=== PATIENT | male | born 1955 | race Caucasian/White ===

== ENCOUNTER 2021-07-05 18:02 | Emergency (ER) | payer MEDICARE ==
[~2021-07-05] VITALS: Ht 177.8 cm; Wt 96.2 kg
[2021-07-05 18:09] VITALS: BP 156/54
[2021-07-05] MEDS ORDERED: CEPH-585 PO (21:19)
[2021-07-05] MEDS ORDERED: cephalexin 250mg capsule PO ONE (21:20)
== END 2021-07-05 21:28 | disposition home or self-care (01) ==
LOC: ER 18:04
DX: L73.9 Follicular disorder, unspecified (principal); Z88.8 Allergy status to other drugs, medicaments and biological substances; Z79.2 Long term (current) use of antibiotics
CPT/HCPCS: 99283

== ENCOUNTER 2021-07-28 13:42 | Emergency (ER) | payer MEDICARE ==
[~2021-07-28] VITALS: Ht 177.8 cm; Wt 100.0 kg
[2021-07-28 13:58] VITALS: BP 175/113
[2021-07-28] MEDS ORDERED: LIDOcaine 2% 10ml TOPICAL JELLY (Urojet) MM ONE (17:30)
[2021-07-28 18:00] LABS: COLOR,URINE YELLOW (Yellow); GLUCOSE, URINE NEGATIVE (Neg); KETONES,URINE TRACE mg/dl (Neg); LEUKOCYTE ESTERASE ,URINE NEGATIVE (Neg); NITRITES, URINE NEGATIVE (Neg); OCCULT BLOOD,URINE LARGE (Neg); PH,URINE 5.5 (4.8-8.0); PROTEIN,URINE NEGATIVE (Neg)
[2021-07-28 18:04] LABS: CLARITY,URINE SLIGHTLY CLOUDY (Clear); UA COLLECTION TYPE FOLEY CATH
[2021-07-28 18:07] LABS: MUCUS STRANDS FEW /LPF (Neg); RBC,URINE 20-50 /HPF (0-2); SQUAMOUS EPITHELIAL CELL,UR NONE SEEN /LPF (FEW)
[2021-07-28 18:08] LABS: BACTERIA,URINE FEW /HPF (Neg); WBC,URINE NONE SEEN /HPF (0-4)
== END 2021-07-28 18:05 | disposition home or self-care (01) ==
LOC: ER 13:42
DX: R33.9 Retention of urine, unspecified (principal); N40.0 Benign prostatic hyperplasia without lower urinary tract symptoms; Z88.0 Allergy status to penicillin; Z96.0 Presence of urogenital implants
CPT/HCPCS: 81001; 99283

== ENCOUNTER 2022-02-14 06:41 | Emergency (ER) | payer MEDICARE ==
[~2022-02-14] VITALS: Ht 177.8 cm; Wt 95.5 kg
[2022-02-14] MEDS ORDERED: LIDOcaine 2% 10ml TOPICAL JELLY (Urojet) MM ONE (07:00)
[2022-02-14 07:58] LABS: CLARITY,URINE CLEAR (Clear); GLUCOSE, URINE NEGATIVE (Neg); KETONES,URINE NEGATIVE (Neg); LEUKOCYTE ESTERASE ,URINE NEGATIVE (Neg); NITRITES, URINE NEGATIVE (Neg); OCCULT BLOOD,URINE MODERATE (Neg); PROTEIN,URINE NEGATIVE (Neg); UROBILINOGEN,URINE 0.2 E.U/dL (0.2-1.0)
[2022-02-14 08:00] LABS: COLOR,URINE STRAW (Yellow); UA COLLECTION TYPE FOLEY CATH
[2022-02-14 08:01] LABS: BACTERIA,URINE NONE SEEN /HPF (Neg); MUCUS STRANDS NONE SEEN /LPF (Neg); RBC,URINE 20-50 /HPF (0-2); SQUAMOUS EPITHELIAL CELL,UR NONE SEEN /LPF (FEW); WBC,URINE 0-4 /HPF (0-4)
[2022-02-14 08:06] VITALS: BP 142/82
== END 2022-02-14 08:38 | disposition home or self-care (01) ==
LOC: ER 06:41
DX: R33.9 Retention of urine, unspecified (principal); R11.0 Nausea; R10.30 Lower abdominal pain, unspecified; N40.0 Benign prostatic hyperplasia without lower urinary tract symptoms; F17.200 Nicotine dependence, unspecified, uncomplicated; Z88.8 Allergy status to other drugs, medicaments and biological substances; Z79.899 Other long term (current) drug therapy
CPT/HCPCS: 51702; 81001; 99284

== ENCOUNTER 2022-02-15 03:13 | Emergency (ER) | payer MEDICARE ==
[~2022-02-15] VITALS: Ht 177.8 cm; Wt 90.9 kg
[2022-02-15 03:22] VITALS: BP 148/88
== END 2022-02-15 05:37 | disposition home or self-care (01) ==
LOC: ER 03:14
DX: T83.028A Displacement of other urinary catheter, initial encounter (principal); R33.9 Retention of urine, unspecified; Y84.6 Urinary catheterization as the cause of abnormal reaction of the patient, or of later complication, without mention of misadventure at the time of the procedure; Y92.89 Other specified places as the place of occurrence of the external cause; Z88.8 Allergy status to other drugs, medicaments and biological substances; N40.0 Benign prostatic hyperplasia without lower urinary tract symptoms
CPT/HCPCS: 51702; 99284

== ENCOUNTER 2022-07-12 08:30 | Emergency (ER) | payer MEDICARE ==
[~2022-07-12] VITALS: Ht 177.8 cm; Wt 109.1 kg
[2022-07-12 09:51] LABS: BASOPHILS % (AUTO) 0.1 % (0-1); EOSINOPHILS % (AUTO) 0 % (0-6); HEMATOCRIT 46.7 % (42.0-52.0); HEMOGLOBIN 16.3 g/dl (14.0-17.9); LYMPHOCYTES # (AUTO) 0.8 X10'3 (1.1-4.8); MEAN CORPUSCULAR HEMOGLOBIN 29.9 PG (27.0-31.0); MEAN CORPUSCULAR HGB CONC 34.8 g/dL (33.0-36.5); MONOCYTES # (AUTO) 0.4 X10'3 (0-0.9); MONOCYTES % (AUTO) 15.6 % (2-12); NEUTROPHILS # (AUTO) 1.4 X10'3 (1.8-7.7); NEUTROPHILS % (AUTO) 54.3 % (42-75); PLATELET COUNT 144 X10'3 (140-440); RED BLOOD COUNT 5.44 X10'6 (4.70-6.10); RED CELL DISTRIBUTION WIDTH 14.1 % (11.5-14.5); WHITE BLOOD COUNT 2.5 X10'3 (4.5-11.0)
[2022-07-12 10:11] LABS: ALANINE AMINOTRANSFERASE 30 U/L (12-78); ALBUMIN 3.7 G/DL (3.4-5.0); ALBUMIN/GLOBULIN RATIO 0.8 (1.1-1.5); ALKALINE PHOSPHATASE 89 IU/L (46-116); ANION GAP 10 (8-16); ASPARTATE AMINO TRANSFERASE 29 U/L (10-37); BILIRUBIN,TOTAL 0.7 MG/DL (0.1-1.0); BLOOD UREA NITROGEN 17 MG/DL (7-18); BUN/CREATININE RATIO 18.9 (5.4-32.0); CALCIUM 8.6 MG/DL (8.5-10.1); CHLORIDE 96 MMOL/L (99-107); GLUCOSE 128 MG/DL (70-104); POTASSIUM 3.8 MMOL/L (3.5-5.1); SODIUM 133 MMOL/L (135-145); TOTAL CARBON DIOXIDE 27.2 MMOL/L (24-32); TOTAL PROTEIN 8.4 G/DL (6.4-8.2); eGFR 84 ML/MIN
[2022-07-12 10:30] LABS: PLATELET ESTIMATE NORMAL; TOTAL CELLS COUNTED 100
[2022-07-12] MEDS ORDERED: dexamethasone sod phosphate 10mg/ml inj IV STA (13:51)
[2022-07-12] MEDS ORDERED: iohexol 350MG/ML 100ml bottle IV ONE (14:55)
--- NOTE | 2022-07-12 15:15 | NUR ---
pending AC IV placement, delay in CT
[2022-07-12] MEDS ORDERED: ipratropium/albuterol 3ml nebule NEB ONE (16:50)
[2022-07-12] MEDS ORDERED: azithromycin 250mg tablet PO ONE (16:50)
[2022-07-12] MEDS ORDERED: amox tr/potassium clavulanate 875/125mg TAB PO ONE (16:50)
[2022-07-12] MEDS ORDERED: AZIT-83 PO (17:38)
[2022-07-12] MEDS ORDERED: AMOX-580 PO (17:38)
[2022-07-12] MEDS ORDERED: PRED20TA PO (17:38)
[2022-07-12 17:50] VITALS: BP 154/89
== END 2022-07-12 17:51 | disposition home or self-care (01) ==
LOC: ER 08:31
DX: J44.1 Chronic obstructive pulmonary disease with (acute) exacerbation (principal); Z20.822 Contact with and (suspected) exposure to COVID-19; R07.89 Other chest pain; R91.1 Solitary pulmonary nodule; Z88.8 Allergy status to other drugs, medicaments and biological substances; Z79.2 Long term (current) use of antibiotics; Z79.899 Other long term (current) drug therapy
CPT/HCPCS: 36415; 71045; 71275; 80053; 83880; 84484; 85007; 85025; 85379; 87811; 93005; 94640; 96374; 99285; J1100; J3490; Q9967

== ENCOUNTER 2023-06-02 10:24 | Emergency (ER) | payer MEDICARE ==
[~2023-06-02] VITALS: Ht 177.8 cm; Wt 100.0 kg
[~2023-06-02 10:24] MED LIST: CIPR-260 PO
[2023-06-02 10:26] VITALS: BP 201/106
[2023-06-02] MEDS ORDERED: LidoCAINE 2% Topical Jelly 11mL syringe MM ONE (10:35)
[2023-06-02] MEDS ORDERED: LIDOcaine 2% 10ml TOPICAL JELLY (Urojet) MM ONE (10:35)
[2023-06-02 12:21] LABS: CLARITY,URINE CLEAR (Clear); COLOR,URINE YELLOW (Yellow); GLUCOSE, URINE NEGATIVE (Neg); KETONES,URINE NEGATIVE (Neg); LEUKOCYTE ESTERASE ,URINE NEGATIVE (Neg); NITRITES, URINE NEGATIVE (Neg); OCCULT BLOOD,URINE SMALL (Neg); PH,URINE 6.5 (4.8-8.0); PROTEIN,URINE NEGATIVE (Neg); UROBILINOGEN,URINE 0.2 E.U/dL (0.2-1.0)
[2023-06-02 12:26] LABS: UA COLLECTION TYPE FOLEY CATH
[2023-06-02 12:31] LABS: WBC,URINE NONE SEEN /HPF (0-4)
[2023-06-02 12:32] LABS: BACTERIA,URINE NONE SEEN /HPF (Neg); MUCUS STRANDS NONE SEEN /LPF (Neg); SQUAMOUS EPITHELIAL CELL,UR NONE SEEN /LPF (FEW)
== END 2023-06-02 12:33 | disposition home or self-care (01) ==
LOC: ER 10:24
DX: R33.9 Retention of urine, unspecified (principal); Z88.8 Allergy status to other drugs, medicaments and biological substances
CPT/HCPCS: 51702; 81001; 99284; C1758; A4340; A4358; A5200

== ENCOUNTER 2023-08-01 07:59 | Emergency (ER) | payer MEDICARE ==
[~2023-08-01] VITALS: Ht 177.8 cm; Wt 93.0 kg
[2023-08-01] MEDS ORDERED: LIDOcaine 2% 10ml TOPICAL JELLY (Urojet) TP ONE (08:50)
[2023-08-01] MEDS ORDERED: LidoCAINE 2% Topical Jelly 11mL syringe TOP ONE (08:55)
[2023-08-01 09:21] VITALS: BP 161/96; PULSE 79; RESP 18; O2SAT 95
[2023-08-01 10:07] LABS: BILIRUBIN,URINE NEGATIVE (Neg); CLARITY,URINE SLIGHTLY CLOUDY (Clear); COLOR,URINE YELLOW (Yellow); GLUCOSE, URINE NEGATIVE (Neg); KETONES,URINE NEGATIVE (Neg); LEUKOCYTE ESTERASE ,URINE NEGATIVE (Neg); NITRITES, URINE NEGATIVE (Neg); OCCULT BLOOD,URINE MODERATE (Neg); PROTEIN,URINE NEGATIVE (Neg); UROBILINOGEN,URINE 0.2 E.U/dL (0.2-1.0)
[2023-08-01 10:13] LABS: UA COLLECTION TYPE FOLEY CATH
[2023-08-01 10:15] LABS: BACTERIA,URINE NONE SEEN /HPF (Neg); MUCUS STRANDS NONE SEEN /LPF (Neg); RBC,URINE 50-100 /HPF (0-2); SQUAMOUS EPITHELIAL CELL,UR NONE SEEN /LPF (FEW); WBC,URINE 0-4 /HPF (0-4)
== END 2023-08-01 11:36 | disposition home or self-care (01) ==
LOC: ER 08:00
DX: R33.9 Retention of urine, unspecified (principal); Z88.8 Allergy status to other drugs, medicaments and biological substances; Z79.2 Long term (current) use of antibiotics
CPT/HCPCS: 51702; 81001; 99284; C1758